=== PATIENT | female | born 1960 | race Caucasian/White ===

== ENCOUNTER → 2018-07-20 | Outpatient (REF) | payer BC ==
[2018-07-20 20:07] LABS: LIPASE 249 U/L (73-393)
[2018-07-20 20:07] LABS: AMYLASE 45 U/L (25-115)
== END ==
LOC: M LAB REF 17:41
DX: R10.819 Abdominal tenderness, unspecified site (principal); R19.7 Diarrhea, unspecified
CPT/HCPCS: 82150

== ENCOUNTER → 2018-07-21 | Outpatient (REF) | payer BC | LOC: M LAB REF 12:30 | DX: R19.7 Diarrhea, unspecified (principal) | CPT/HCPCS: 87507 ==

== ENCOUNTER → 2019-02-04 | Outpatient (CLI) | payer BC ==
[~2019-02-04] MED LIST: LEVO-91 PO; LOSA100T8 PO
[2019-02-04 19:16] LABS: C REACTIVE PROTEIN QUANTITATIV 0.78 MG/DL (0.00-0.30)
[2019-02-08 00:07] LABS: ANCA-ATYPICAL <1:20 titer (Neg:<1:20); ANTI-SACCHAROMYCES CEREV. IgA <20.0 Units (0.0-24.9); ANTI-SACCHAROMYCES CEREV. IgG <20.0 Units (0.0-24.9); CYTOPLASMIC NEUTROP AB ANCA-C <1:20 titer (Neg:<1:20); ENDOMYSIAL ABY IgA Negative (Negative); PERINUCLEAR AB ANCA-P <1:20 titer (Neg:<1:20); TISSUE TRANSGLUTAMINASE IgA <2 U/mL (0-3)
== END ==
LOC: M LABDRWAD 14:46
PROVIDERS: ATTEND Nurse Practitioner Family
DX: R19.7 Diarrhea, unspecified (principal)

== ENCOUNTER → 2019-02-08 | Outpatient (REF) | payer BC ==
[2019-02-12 00:08] LABS: FATS NEUTRAL Increased (.); FATS TOTAL Increased (.); PANCREATIC ELASTASE STOOL >500 (>200)
== END ==
LOC: M LAB REF 16:09
PROVIDERS: ATTEND Nurse Practitioner Family
DX: R19.7 Diarrhea, unspecified (principal)

== ENCOUNTER 2019-10-13 09:55 | Day surgery (SDC) | payer BC ==
[~2019-10-13] VITALS: Ht 154.9 cm; Wt 64.9 kg
[~2019-10-13 09:55] MED LIST changes: +ESTR3TA PO; +LR 1,000 ML IV ONE; +ceFAZolin SOD 2 GM in IV 1 EA IV ONE
[2019-10-13] MEDS ORDERED: METOCLOPRAMIDE INJ 10MG/2ML VIAL (J2765) As Ordered ONE (11:13)
[2019-10-13] MEDS ORDERED: KETOROLAC 60 MG/2 ML VIAL (J1885) As Ordered ONE (11:13)
[2019-10-13] MEDS ORDERED: dexameTHASONE 4 MG/ML 1ML VIAL (J1100) As Ordered ONE (11:13)
[2019-10-13] MEDS ORDERED: PROPOFOL 200 MG/20 ML VIAL As Ordered ONE (11:13)
[2019-10-13] MEDS ORDERED: ONDANSETRON 4MG/2ML VIAL (J2405) As Ordered ONE (11:13)
[2019-10-13] MEDS ORDERED: LIDOCAINE 2% INJ 100 MG/5 ML SDV (FOR ANES.) As Ordered ONE (11:13)
[2019-10-13] MEDS ORDERED: MIDAZOLAM INJ 2 MG/2 ML VIAL (J2250) As Ordered ONE (11:13)
[2019-10-13] MEDS ORDERED: fentaNYL 100 MCG/2 ML INJECTION (J3010) As Ordered ONE (11:13)
[2019-10-13] MEDS ORDERED: LIDOCAINE 1% SDV INJ 30 ML VIAL As Ordered ONE (12:01)
[2019-10-13] MEDS ORDERED: ceFAZolin 1GM INJ (J0690 PER 500MG) As Ordered ONE (12:01)
[2019-10-13] MEDS ORDERED: ACETAMINOPHEN 1000MG 100ML IV BTL (OFIRMEV) (J0131 PER 10MG) As Ordered ONE (13:16)
--- NOTE | 2019-10-13 13:48 | REP ---
SACRUM SERIES: 15 views. HISTORY: InterStim placement. Lead placement. Procedural imaging. 25 seconds of fluoroscopy time is reported. FINDINGS: A sequence of 15 last image hold fluoroscopically obtained spot radiographs of the sacrum document neurostimulator lead placement procedure. Unreviewed
[2019-10-13 14:05] VITALS: BP 124/60
[2019-10-13] MEDS ORDERED: LR 1,000 ML IV SCH (15:00)
[2019-10-13] MEDS ORDERED: ONDANSETRON 4MG/2ML VIAL (J2405) IV PRN (15:00)
[2019-10-13] MEDS ORDERED: fentaNYL 100 MCG/2 ML INJECTION (J3010) IV PRN (15:00)
[2019-10-13] MEDS ORDERED: PERCOCET 5MG/325MG TAB PO PRN (15:00)
[2019-10-13] MEDS ORDERED: IBUPROFEN 600 MG TAB PO PRN (15:15)
--- NOTE | 2019-10-13 20:33 | RO ---
DATE OF PROCEDURE: 10/13/2019 PREOPERATIVE DIAGNOSIS: Urinary incontinence with overactive bladder and urge. POSTOPERATIVE DIAGNOSIS: Urinary incontinence with overactive bladder and urge. PROCEDURE: InterStim stage I with placement of lead and temporary generator, programming and, of course, fluoroscopic evaluation. SURGEON: Dr. Marely Fontanez ASPHALT BLENDER: None. ANESTHESIA: Monitored anesthesia care (MAC), local. DESCRIPTION OF PROCEDURE: Renee was brought to the operating room where she was positioned prone in the usual fashion, the prep and the drapes, etcetera and after identification and measuring off the landmarks, she was numbed with lidocaine. And the first couple of attempts to place the sacral needle showed no palpable foramen at all. X-ray showed that we were a little too lateral, so we moved medial and placed a needle in the third sacral foramen. On the first test, we had good response, but we were over 1, so we went ahead and moved just a little higher and more medial. And with this placement, we had very good both francisco and toe response. We then placed the curved stylet with the lead and our test with this showed response at all four leads under 1 with both francisco and toe response under 1 for all four. So, we went ahead with that for our placement. We used continuous fluoroscopy while we removed the introducer and such, and then burrowed the lead out sideways to a pocket in the left superior buttock, inferior back and connected it to the extension to the temporary generator. Created a small pocket, irrigated with antibiotic irrigation, etc., numbed again. And after the connection, the boot and all that, tunneled out further to the exit to the temporary generator and closed in two layers the wound for the eventual future pocket should this be a successful test, and, of course, closed that with #2-0 Vicryl, closed the skin with #3-0 Vicryl, and then dry sterile dressings were applied, and the generator connected, etc. She will be programmed outside the operating room (OR). Estimated blood loss for the procedure: Maybe 3 mL. As noted, we did use antibiotic irrigation, we did use lidocaine, as well as the MAC, and there were no complications. Fluid replacement was crystalloid. Condition and Disposition: Renee tolerated the procedure well and was recovering in the recovery room in good condition.
== END 2019-10-13 14:27 | disposition home or self-care (01) ==
LOC: M SDC 09:55
PROVIDERS: ATTEND Obstetrics & Gynecology
DX: R32 Unspecified urinary incontinence (principal); N32.81 Overactive bladder; I10 Essential (primary) hypertension; E78.5 Hyperlipidemia, unspecified; E03.9 Hypothyroidism, unspecified; Z79.899 Other long term (current) drug therapy
CPT/HCPCS: 64581; 76000; C1767; C1894; C1897; J0131; J0690; J1100; J1885; J2250; J2405; J2765; J3010

== ENCOUNTER 2019-10-20 09:07 | Day surgery (SDC) | payer BC ==
[~2019-10-20] VITALS: Ht 154.9 cm; Wt 66.1 kg
[2019-10-20] MEDS ORDERED: SCOPOLAMINE 1MG TRANSDERMAL PATCH As Ordered ONE (09:36)
[2019-10-20] MEDS ORDERED: LIDOCAINE 1% MDV 20ML VIAL As Ordered ONE (09:52)
[2019-10-20] MEDS ORDERED: ceFAZolin 1GM INJ (J0690 PER 500MG) As Ordered ONE (09:52)
[2019-10-20] MEDS ORDERED: SCOPOLAMINE 1MG TRANSDERMAL PATCH TOP ONE (10:00)
[2019-10-20] MEDS ORDERED: PROPOFOL 200 MG/20 ML VIAL As Ordered ONE (10:01)
[2019-10-20] MEDS ORDERED: dexameTHASONE 4 MG/ML 1ML VIAL (J1100) As Ordered ONE (10:01)
[2019-10-20] MEDS ORDERED: ONDANSETRON 4MG/2ML VIAL (J2405) As Ordered ONE (10:01)
[2019-10-20] MEDS ORDERED: METOCLOPRAMIDE INJ 10MG/2ML VIAL (J2765) As Ordered ONE (10:01)
[2019-10-20] MEDS ORDERED: fentaNYL 100 MCG/2 ML INJECTION (J3010) As Ordered ONE (10:01)
[2019-10-20] MEDS ORDERED: LIDOCAINE 2% INJ 100 MG/5 ML SDV (FOR ANES.) As Ordered ONE (10:01)
[2019-10-20] MEDS ORDERED: MIDAZOLAM INJ 2 MG/2 ML VIAL (J2250) As Ordered ONE (10:01)
[2019-10-20] MEDS ORDERED: ACETAMINOPHEN 1000MG 100ML IV BTL (OFIRMEV) (J0131 PER 10MG) As Ordered ONE (10:08)
[2019-10-20] MEDS ORDERED: KETOROLAC 60 MG/2 ML VIAL (J1885) As Ordered ONE (10:10)
[2019-10-20 11:40] VITALS: BP 130/69
--- NOTE | 2019-10-24 11:36 | RO ---
DATE OF PROCEDURE: 10/20/2019 PREPROCEDURE DIAGNOSIS: Incontinence with successful stage I InterStim. POSTPROCEDURE DIAGNOSIS: Incontinence with successful stage I InterStim. PROCEDURE: Stage II InterStim with placement of permanent neurostimulator and programming. SURGEON: Marely Fontanez MD BIBLE READER: None. ANESTHESIA: MAC and local. DESCRIPTION OF PROCEDURE: Renee was brought to the operating room where sufficient sedation was given, and she was prepped, draped and positioned in the usual prone position. We then used Lidocaine at the incision site over the extension connector. After waiting for the Lidocaine to set up, we made an incision over the previous incision site, dissected down to the connection, the connection, removed the bench worker helper and then attached the neurostimulator, following which we used the Bovie and created a pocket and irrigated with antibiotic irrigant, and then placed the InterStim neurostimulator. I did a two layer closure over the pocket, and then tested for impedance. When the neurostimulator passed that testing, the final skin closure was completed and Steri-Strips placed. We used 2-0 for the deep closure and 3-0 for the skin with good approximation and hemostasis at both levels. Steri-Strips were used for the dressing, and the procedure was ended. ESTIMATED BLOOD LOSS: About 2 mL. FLUID REPLACEMENT: Crystalloid. COMPLICATIONS: None. CONDITION AND DISPOSITION: Renee tolerated the procedure well and was recovering in the recovery room in good condition.
== END 2019-10-20 12:01 | disposition home or self-care (01) ==
LOC: M SDC 09:07
PROVIDERS: ATTEND Obstetrics & Gynecology
DX: R32 Unspecified urinary incontinence (principal); I10 Essential (primary) hypertension; E03.9 Hypothyroidism, unspecified; E78.00 Pure hypercholesterolemia, unspecified; G43.909 Migraine, unspecified, not intractable, without status migrainosus; I49.9 Cardiac arrhythmia, unspecified; N95.2 Postmenopausal atrophic vaginitis; Z79.899 Other long term (current) drug therapy; Z87.442 Personal history of urinary calculi; Z90.710 Acquired absence of both cervix and uterus; Z79.890 Hormone replacement therapy
CPT/HCPCS: 64590; C1767; J0131; J0690; J1100; J1885; J2250; J2405; J2765; J3010

== ENCOUNTER → 2020-04-19 | Outpatient (CLI) | payer BC ==
[~2020-04-19] MED LIST changes: +EPIP0.3I2 IM; -LR 1,000 ML IV ONE; +PRED10TA2 PO; -ceFAZolin SOD 2 GM in IV 1 EA IV ONE
--- NOTE | 2020-04-19 15:58 | REP ---
Clinical: Right wrist pain. Technique: AP, lateral, bilateral oblique views of the right wrist. Findings: Findings suggest old ulnar styloid fracture. No acute fracture or dislocation identified. Mild arthritic changes primarily noted at the first carpometacarpal joint with subchondral sclerosis, marginal spurring, mild chronic subluxation and joint space narrowing. Increase sclerosis and joint space narrowing also noted at the radiocarpal joint line. Impression: Mild arthritic changes primarily involving the first carpometacarpal joint and radiocarpal joint space. Electronically Signed by Rigoberto Arriola MD 04/19/2020 03:50 P
--- NOTE | 2020-04-19 16:00 | REP ---
Clinical: Right hand pain. Technique: AP, lateral, bilateral oblique views of the right hand. Findings: Subchondral sclerosis, joint space narrowing, marginal spurring and mild subluxation noted at the first carpometacarpal joint. Mild sclerosis and subtle joint space narrowing with minimal spurring also identified at the first metacarpophalangeal joint. Remainder of the examination is essentially age-appropriate. Impression: Arthritic changes involving the first digit. Electronically Signed by Rigoberto Arriola MD 04/19/2020 03:52 P
== END ==
LOC: M ADAMS 15:22
PROVIDERS: ATTEND Family Medicine
DX: M79.641 Pain in right hand (principal); M25.531 Pain in right wrist

== ENCOUNTER 2020-07-11 14:06 | Emergency (ER) | payer BC ==
[~2020-07-11 14:06] MED LIST changes: -EPIP0.3I2 IM; -PRED10TA2 PO
[2020-07-11] MEDS ORDERED: FAMOTIDINE/NS 20 MG/50 ML BAG (S0028) As Ordered ONE (14:19)
[2020-07-11] MEDS ORDERED: diphenhydrAMINE 50MG/ML VIAL (J1200) As Ordered ONE (14:19)
[2020-07-11] MEDS ORDERED: diphenhydrAMINE 50MG/ML VIAL (J1200) IV ONE (14:30)
[2020-07-11] MEDS ORDERED: NS 1,000 ML IV ONE (14:30)
[2020-07-11] MEDS ORDERED: FAMOTIDINE INJ 20MG/2ML VIAL (S0028 PER 1) IVP ONE (14:30)
[2020-07-11 15:38] LABS: BASO % 0.2 % (0.0-1.0); EOS % 0.2 % (0.0-3.0); HEMATOCRIT 40.8 % (36.0-47.0); HEMOGLOBIN 13.5 g/dl (12.0-15.5); LYMPH # 2.3 10^3/uL (1.5-5.0); LYMPH % 17.6 % (24.0-44.0); MEAN CORPUSCULAR HEMOGLOBIN 31.5 pg (27.0-33.0); MEAN CORPUSCULAR HGB CONC 33.1 g/dl (32.0-36.5); MEAN CORPUSCULAR VOLUME 95.3 fl (80.0-96.0); MONO # 0.3 10^3/uL (0.0-0.8); MONO % 2.4 % (0.0-5.0); NEUTROPHILS # 10.1 10^3/uL (1.5-8.5); NEUTROPHILS % 79.1 % (36.0-66.0); PLATELET COUNT, AUTOMATED 167 10^3/uL (150-450); RED BLOOD COUNT 4.28 10^6/uL (4.00-5.40); WHITE BLOOD COUNT 12.8 10^3/uL (4.0-10.0)
[2020-07-11] MEDS ORDERED: EPIP0.3I2 IM (16:30)
[2020-07-11] MEDS ORDERED: PRED10TA2 PO (16:30)
[2020-07-11 16:45] VITALS: BP 108/64
[2020-07-11 17:07] LABS: BLOOD UREA NITROGEN 16 MG/DL (7-18); CALCIUM LEVEL 8.6 MG/DL (8.8-10.2); CARBON DIOXIDE LEVEL 27 MEQ/L (21-32); CHLORIDE LEVEL 109 MEQ/L (98-107); CREATININE FOR GFR 0.96 MG/DL (0.55-1.30); FREE T4 1.16 NG/DL (0.76-1.46); GLOMERULAR FILTRATION RATE > 60.0 (>45); GLUCOSE, FASTING 173 MG/DL (70-100); POTASSIUM SERUM 3.1 MEQ/L (3.5-5.1); SODIUM LEVEL 142 MEQ/L (136-145)
== END 2020-07-11 17:11 | disposition home or self-care (01) ==
LOC: M ED 14:06 → EDBD 14:06 → M ED 17:11
DX: T63.441A Toxic effect of venom of bees, accidental (unintentional), initial encounter (principal); Y92.9 Unspecified place or not applicable; Y93.9 Activity, unspecified; L29.9 Pruritus, unspecified; L50.0 Allergic urticaria; R21 Rash and other nonspecific skin eruption; Z79.890 Hormone replacement therapy; Z79.899 Other long term (current) drug therapy; Z91.030 Bee allergy status
CPT/HCPCS: 80048; 84439; 84443; 85025; 93041; 94760; 96361; 96374; 96375; 99284; J1200

== ENCOUNTER → 2021-01-25 | Outpatient (REF) | payer BC ==
[~2021-01-25] MED LIST changes: +EPIP0.3I2 IM; +PRED10TA2 PO
== END ==
LOC: M LAB 21:14
PROVIDERS: ATTEND Family Medicine
DX: R19.7 Diarrhea, unspecified (principal)

== ENCOUNTER → 2021-09-05 | Outpatient (CLI) | payer BC ==
--- NOTE | 2021-09-06 10:19 | REP ---
INDICATION: ENC SCREEN FOR MALIGNANT NEOPLASM OF BREAST. COMPARISON: Multiple TECHNIQUE: Digital screening mammography was cardio bilaterally in the CC and MLO projections using both 2D and 3D modalities and compared to the prior exams. By history, the patient has no complaints of a palpable breast abnormality or other significant breast complaints. FINDINGS: The breasts are unchanged in size and shape. There are no lu soft tissue densities or spiculated masses. There is no internal architectural distortion. There is no skin thickening or nipple retraction. In the upper outer quadrant of the right breast there is a new grouping of calcifications which seem to vary in size, shape, and radiographic density. Other calcifications are seen bilaterally, however, they are stable and have a benign appearance. The Volpara volumetric breast density pattern is b. IMPRESSION: BIRADS/ACR category 0 mammogram. New calcifications seen in the right breast as described above and for which diagnostic digital magnified spot compression views are recommended in the CC and true lateral projections. This patient's Tyrer-Cuzick lifetime breast cancer risk assessment score is 16.2%. This mammogram was interpreted with the aid of an FDA-approved computer-aided detection system. The patient states she had a clinical breast exam in September 2021. The patient letter being requested is M0. RECOMMENDATION: Above <Electronically signed by Dennis Hsieh > 09/06/21 [id number]
== END ==
LOC: M WHC 11:17
PROVIDERS: ATTEND Obstetrics & Gynecology
DX: Z12.31 Encounter for screening mammogram for malignant neoplasm of breast (principal); R92.1 Mammographic calcification found on diagnostic imaging of breast

== ENCOUNTER → 2021-09-16 | Outpatient (CLI) | payer BC ==
--- NOTE | 2021-09-16 12:16 | REP ---
INDICATION: RIGHT BREAST ADD VIEWS. Calcifications COMPARISON: Multiple screening mammograms the most recent of 09/05/2021. TECHNIQUE: 2D focal compression magnification of the right breast in the CC and MLO orientations. 2D and 3D true lateral view of the left breast. FINDINGS: The Volpara volumetric breast density pattern is a, the breasts are almost entirely fatty. The group of indeterminate calcifications in the middle 3rd of the right breast above and lateral to the nipple, in the upper outer quadrant, at the 10-11 o'clock position, are probably benign on the additional view images. However, a six-month follow-up evaluation is recommended. IMPRESSION: BIRADS/ACR : Category 3: Probably benign. The patient letter being requested is M3. RECOMMENDATION: Repeat six-month follow-up mammographic evaluation of the right breast to include focal compression magnification views. <Electronically signed by Benjamin Abreu > 09/16/21 [id number]
== END ==
LOC: M WHC 11:37
PROVIDERS: ATTEND Obstetrics & Gynecology
DX: R92.1 Mammographic calcification found on diagnostic imaging of breast (principal)
CPT/HCPCS: 77065; G0279

== ENCOUNTER → 2022-03-17 | Outpatient (CLI) | payer BC | LOC: M WHC 09:40 | PROVIDERS: ATTEND Obstetrics & Gynecology | DX: R92.1 Mammographic calcification found on diagnostic imaging of breast (principal); R92.0 Mammographic microcalcification found on diagnostic imaging of breast | CPT/HCPCS: 77065; G0279 ==

== ENCOUNTER → 2022-11-19 | Outpatient (REF) | payer BC ==
[2022-11-19 18:49] LABS: APPEARANCE, URINE MANUAL CLOUDY (CLEAR); COLOR, URINE MANUAL YELLOW (YELLOW)
[2022-11-19 18:50] LABS: BILIRUBIN, URINE MANUAL NEGATIVE (NEGATIVE); BLOOD URINE MANUAL TRACE (NEGATIVE); GLUCOSE, URINE (UA) MANUAL NEGATIVE (NEGATIVE); KETONE, URINE MANUAL NEGATIVE (NEGATIVE); LEUKOCYTE ESTERASE, URINE MAN NEGATIVE (NEGATIVE); NITRITE, URINE MANUAL NEGATIVE (NEGATIVE); PROTEIN, URINE MANUAL NEGATIVE (NEGATIVE); SPECIFIC GRAVITY,URINE MANUAL 1.025 (1.002-1.035); UROBILINOGEN, URINE MANUAL NORMAL (NORMAL)
[2022-11-19 19:36] LABS: SQUAMOUS EPITHELIAL CELL URINE SMALL AMOUNT /hpf (SMALL AMT); WBC, URINE NONE SEEN /hpf (0-3)
[2022-11-19 19:37] LABS: AMORPHOUS SEDIMENT, URINE LARGE AMOUNT (NEGATIVE); BACTERIA, URINE NONE SEEN; CALCIUM OXALATE CRYSTALS,URINE SMALL AMOUNT /hpf; HYALINE CAST, URINE NONE SEEN /lpf (0-1)
== END ==
LOC: M SMT 17:01
PROVIDERS: ATTEND Urology
DX: R39.15 Urgency of urination (principal)

== ENCOUNTER → 2022-12-18 | Outpatient (REF) | payer BC ==
[2022-12-19 14:00] LABS: BLOOD UREA NITROGEN 15 MG/DL (9-23); CALCIUM LEVEL 9.2 MG/DL (8.3-10.6); CARBON DIOXIDE LEVEL 29 MMOL/L (20-31); CHLORIDE LEVEL 105 MMOL/L (98-107); GLOMERULAR FILTRATION RATE > 60.0 (>45); GLUCOSE, FASTING 86 MG/DL (74-106); POTASSIUM SERUM 4.2 MMOL/L (3.5-5.1); SODIUM LEVEL 141 MMOL/L (136-145)
== END ==
LOC: M SFHCADAM 12:34
PROVIDERS: ATTEND Nurse Practitioner Family
DX: L65.9 Nonscarring hair loss, unspecified (principal)

== ENCOUNTER → 2022-12-26 | Outpatient (REF) | payer BC ==
[2022-12-26 17:31] LABS: APPEARANCE, URINE HAZY (CLEAR); BACTERIA, URINE AUTO 1+ (NEGATIVE); BILIRUBIN, URINE AUTO NEGATIVE (NEGATIVE); BLOOD, URINE BLOOD NEGATIVE (NEGATIVE); COLOR, URINE AMBER (YELLOW); GLUCOSE, URINE (UA) AUTO NEGATIVE (NEGATIVE); KETONE, URINE AUTO TRACE mg/dL (NEGATIVE); LEUKOCYTE ESTERASE, URINE AUTO 1+ (NEGATIVE); MUCUS, URINE MODERATE (NEGATIVE); NITRITE, URINE AUTO NEGATIVE (NEGATIVE); PROTEIN, URINE AUTO NEGATIVE (NEGATIVE); RBC, URINE AUTO 5 /HPF (0-3); SPECIFIC GRAVITY URINE AUTO 1.025 (1.002-1.035); SQUAMOUS EPITHELIAL CELL UR AU 5 /HPF (0-6); UROBILINOGEN, URINE AUTO 0.2 mg/dL (0.0-2.0); WBC, URINE AUTO 23 /HPF (0-3)
== END ==
LOC: M SFHCADAM 14:51
PROVIDERS: ATTEND Urology
DX: R31.29 Other microscopic hematuria (principal)

== ENCOUNTER → 2023-02-13 | Outpatient (REF) | payer BC ==
[2023-02-13 18:29] LABS: AMORPHOUS SEDIMENT MODERATE (NEGATIVE); APPEARANCE, URINE TURBID (CLEAR); BACTERIA, URINE AUTO NEGATIVE (NEGATIVE); BILIRUBIN, URINE AUTO NEGATIVE (NEGATIVE); BLOOD, URINE BLOOD NEGATIVE (NEGATIVE); COLOR, URINE YELLOW (YELLOW); GLUCOSE, URINE (UA) AUTO NEGATIVE (NEGATIVE); KETONE, URINE AUTO NEGATIVE (NEGATIVE); LEUKOCYTE ESTERASE, URINE AUTO NEGATIVE (NEGATIVE); MUCUS, URINE SMALL (NEGATIVE); NITRITE, URINE AUTO NEGATIVE (NEGATIVE); PROTEIN, URINE AUTO NEGATIVE (NEGATIVE); RBC, URINE AUTO 0 /HPF (0-3); SPECIFIC GRAVITY URINE AUTO 1.021 (1.002-1.035); SQUAMOUS EPITHELIAL CELL UR AU 0 /HPF (0-6); UROBILINOGEN, URINE AUTO 0.2 mg/dL (0.0-2.0); WBC, URINE AUTO 0 /HPF (0-3)
== END ==
LOC: M SMT 16:52
PROVIDERS: ATTEND Urology
DX: R31.9 Hematuria, unspecified (principal)

== ENCOUNTER → 2023-04-21 | Outpatient (REF) | payer BC ==
[2023-04-21 13:31] LABS: ALKALINE PHOSPHATASE 103 U/L (46-116); ALT/SGPT 17 U/L (7.0-40); AST/SGOT 14 U/L (<34); BILIRUBIN,TOTAL 0.4 MG/DL (0.3-1.2); BLOOD UREA NITROGEN 14 MG/DL (9-23); CALCIUM LEVEL 9.4 MG/DL (8.3-10.6); CARBON DIOXIDE LEVEL 30 MMOL/L (20-31); CHLORIDE LEVEL 102 MMOL/L (98-107); CHOLESTEROL LEVEL 219 MG/DL (<200); CHOLESTEROL RISK RATIO 3.65 (<5); CREATININE FOR GFR 0.78 MG/DL (0.55-1.30); GLOMERULAR FILTRATION RATE > 60.0 (>45); GLUCOSE, FASTING 88 MG/DL (74-106); HDL CHOLESTEROL 59.9 MG/DL (>40); LDL CHOLESTEROL 136.7 MG/DL (<100); NON-HDL-C 159.1 MG/DL; POTASSIUM SERUM 3.6 MMOL/L (3.5-5.1); SODIUM LEVEL 139 MMOL/L (136-145); TOTAL PROTEIN 7.1 G/DL (5.7-8.2); TRIGLYCERIDES LEVEL 112 MG/DL (<150)
[2023-04-21 13:33] LABS: THYROID STIMULATING HORMONE 0.904 uIU/ML (0.55-4.78)
== END ==
LOC: M LAB REF 12:22
PROVIDERS: ATTEND Family Medicine
DX: Z00.00 Encounter for general adult medical examination without abnormal findings (principal); E78.5 Hyperlipidemia, unspecified; I10 Essential (primary) hypertension

== ENCOUNTER → 2023-09-02 | Outpatient (REF) | payer BC | LOC: M SMT 17:23 | PROVIDERS: ATTEND Urology | DX: R31.29 Other microscopic hematuria (principal) ==

== ENCOUNTER → 2023-09-10 | Outpatient (REF) | payer BC ==
[2023-09-10 18:50] LABS: APPEARANCE, URINE CLEAR (CLEAR); BACTERIA, URINE AUTO NEGATIVE (NEGATIVE); BILIRUBIN, URINE AUTO NEGATIVE (NEGATIVE); BLOOD, URINE BLOOD NEGATIVE (NEGATIVE); COLOR, URINE STRAW (YELLOW); GLUCOSE, URINE (UA) AUTO NEGATIVE (NEGATIVE); KETONE, URINE AUTO NEGATIVE (NEGATIVE); LEUKOCYTE ESTERASE, URINE AUTO NEGATIVE (NEGATIVE); MUCUS, URINE SMALL (NEGATIVE); NITRITE, URINE AUTO NEGATIVE (NEGATIVE); PROTEIN, URINE AUTO NEGATIVE (NEGATIVE); RBC, URINE AUTO 0 /HPF (0-3); SPECIFIC GRAVITY URINE AUTO 1.011 (1.002-1.035); SQUAMOUS EPITHELIAL CELL UR AU 0 /HPF (0-6); UROBILINOGEN, URINE AUTO 0.2 mg/dL (0.0-2.0); WBC, URINE AUTO 0 /HPF (0-3)
== END ==
LOC: M SMT 17:10
PROVIDERS: ATTEND Urology
DX: R30.0 Dysuria (principal)

== ENCOUNTER → 2023-10-12 | Outpatient (REF) | payer BC ==
[2023-10-12 17:43] LABS: ALBUMIN 3.7 G/DL (3.2-5.2); ALKALINE PHOSPHATASE 86 U/L (46-116); ALT/SGPT 12 U/L (7.0-40); AST/SGOT 14 U/L (<34); BILIRUBIN,TOTAL 0.3 MG/DL (0.3-1.2); BLOOD UREA NITROGEN 12 MG/DL (9-23); CALCIUM LEVEL 9.1 MG/DL (8.3-10.6); CARBON DIOXIDE LEVEL 27 MMOL/L (20-31); CHLORIDE LEVEL 103 MMOL/L (98-107); CHOLESTEROL LEVEL 250 MG/DL (<200); CHOLESTEROL RISK RATIO 4.05 (<5); CREATININE FOR GFR 0.73 MG/DL (0.55-1.30); FREE T4 1.17 NG/DL (0.89-1.76); GLOMERULAR FILTRATION RATE > 60.0 (>45); GLUCOSE, FASTING 92 MG/DL (74-106); HDL CHOLESTEROL 61.7 MG/DL (>40); LDL CHOLESTEROL 168.7 MG/DL (<100); NON-HDL-C 188.3 MG/DL; SODIUM LEVEL 138 MMOL/L (136-145); THYROID STIMULATING HORMONE 0.562 uIU/ML (0.55-4.78); TRIGLYCERIDES LEVEL 98 MG/DL (<150)
== END ==
LOC: M LAB REF 16:20
PROVIDERS: ATTEND Family Medicine
DX: Z00.00 Encounter for general adult medical examination without abnormal findings (principal); I10 Essential (primary) hypertension; E78.5 Hyperlipidemia, unspecified; E03.9 Hypothyroidism, unspecified

== ENCOUNTER → 2024-01-15 | Outpatient (REF) | payer BC, MEDICARE ==
[2024-01-15 18:15] LABS: APPEARANCE, URINE HAZY (CLEAR); BACTERIA, URINE AUTO NEGATIVE (NEGATIVE); BILIRUBIN, URINE AUTO NEGATIVE (NEGATIVE); BLOOD, URINE BLOOD 1+ (NEGATIVE); COLOR, URINE YELLOW (YELLOW); GLUCOSE, URINE (UA) AUTO NEGATIVE (NEGATIVE); KETONE, URINE AUTO NEGATIVE (NEGATIVE); LEUKOCYTE ESTERASE, URINE AUTO NEGATIVE (NEGATIVE); NITRITE, URINE AUTO NEGATIVE (NEGATIVE); PROTEIN, URINE AUTO NEGATIVE (NEGATIVE); RBC, URINE AUTO 1 /HPF (0-3); SPECIFIC GRAVITY URINE AUTO 1.014 (1.002-1.035); SQUAMOUS EPITHELIAL CELL UR AU 4 /HPF (0-6); UROBILINOGEN, URINE AUTO 0.2 mg/dL (0.0-2.0); WBC, URINE AUTO 1 /HPF (0-3)
== END ==
LOC: M SMT 17:03
PROVIDERS: ATTEND Physician Assistant
DX: R30.0 Dysuria (principal)

== ENCOUNTER → 2024-03-25 | Outpatient (CLI) | payer MEDICARE | LOC: M WHC 12:30 | PROVIDERS: ATTEND Obstetrics & Gynecology | DX: Z12.31 Encounter for screening mammogram for malignant neoplasm of breast (principal) ==

== ENCOUNTER → 2024-03-31 | Outpatient (REF) | payer MEDICARE | LOC: M SFHCADAM 16:47 | PROVIDERS: ATTEND Nurse Practitioner Family | DX: C44.519 Basal cell carcinoma of skin of other part of trunk (principal) ==

== ENCOUNTER → 2024-04-15 | Outpatient (REF) | payer MEDICARE | LOC: M LAB REF 13:05 | PROVIDERS: ATTEND Nurse Practitioner Family | DX: R19.7 Diarrhea, unspecified (principal); R10.13 Epigastric pain; K92.1 Melena ==

== ENCOUNTER → 2024-04-21 | Outpatient (CLI) | payer MEDICARE | LOC: M RAD 12:09 | PROVIDERS: ATTEND Nurse Practitioner Family | DX: R19.7 Diarrhea, unspecified (principal); R10.13 Epigastric pain; K92.1 Melena ==

== ENCOUNTER → 2024-04-29 | Outpatient (REF) | payer MEDICARE ==
[2024-04-29 17:05] LABS: FREE T4 1.03 NG/DL (0.89-1.76); THYROID STIMULATING HORMONE 1.335 uIU/ML (0.55-4.78)
[2024-04-29 17:06] LABS: ALBUMIN 3.8 G/DL (3.2-5.2); ALKALINE PHOSPHATASE 90 U/L (46-116); ALT/SGPT 14 U/L (7.0-40); AST/SGOT 10 U/L (<34); BILIRUBIN,TOTAL 0.4 MG/DL (0.3-1.2); BLOOD UREA NITROGEN 14 MG/DL (9-23); CALCIUM LEVEL 9.2 MG/DL (8.3-10.6); CARBON DIOXIDE LEVEL 28 MMOL/L (20-31); CHLORIDE LEVEL 105 MMOL/L (98-107); CHOLESTEROL LEVEL 247 MG/DL (<200); CHOLESTEROL RISK RATIO 4.71 (<5); CREATININE FOR GFR 0.82 MG/DL (0.55-1.30); GLOMERULAR FILTRATION RATE > 60.0 (>45); GLUCOSE, FASTING 93 MG/DL (74-106); HDL CHOLESTEROL 52.4 MG/DL (>40); LDL CHOLESTEROL 169.2 MG/DL (<100); NON-HDL-C 194.6 MG/DL; POTASSIUM SERUM 4.4 MMOL/L (3.5-5.1); SODIUM LEVEL 139 MMOL/L (136-145); TRIGLYCERIDES LEVEL 127 MG/DL (<150)
== END ==
LOC: M LAB REF 16:20
PROVIDERS: ATTEND Family Medicine
DX: E78.5 Hyperlipidemia, unspecified (principal); E03.9 Hypothyroidism, unspecified; I10 Essential (primary) hypertension

== ENCOUNTER → 2024-06-17 | Outpatient (CLI) | payer MEDICARE ==
[2024-06-17 11:24] LABS: ALBUMIN 3.7 G/DL (3.2-5.2); ALKALINE PHOSPHATASE 103 U/L (46-116); ALT/SGPT 12 U/L (7.0-40); AST/SGOT 12 U/L (<34); BILIRUBIN,TOTAL 0.3 MG/DL (0.3-1.2); BLOOD UREA NITROGEN 22 MG/DL (9-23); CALCIUM LEVEL 9.8 MG/DL (8.3-10.6); CARBON DIOXIDE LEVEL 31 MMOL/L (20-31); CHLORIDE LEVEL 105 MMOL/L (98-107); CREATININE FOR GFR 0.93 MG/DL (0.55-1.30); GLOMERULAR FILTRATION RATE > 60.0 (>45); GLUCOSE, FASTING 98 MG/DL (74-106); POTASSIUM SERUM 4.2 MMOL/L (3.5-5.1); SODIUM LEVEL 140 MMOL/L (136-145); TOTAL PROTEIN 7.1 G/DL (5.7-8.2)
== END ==
LOC: M LAB 10:36
PROVIDERS: ATTEND Nurse Practitioner Family
DX: R10.31 Right lower quadrant pain (principal)

== ENCOUNTER → 2024-07-06 | Outpatient (REF) | payer MEDICARE ==
[2024-07-06 15:43] LABS: APPEARANCE, URINE HAZY (CLEAR); BACTERIA, URINE AUTO NEGATIVE (NEGATIVE); BILIRUBIN, URINE AUTO NEGATIVE (NEGATIVE); BLOOD, URINE BLOOD NEGATIVE (NEGATIVE); COLOR, URINE YELLOW (YELLOW); GLUCOSE, URINE (UA) AUTO NEGATIVE (NEGATIVE); KETONE, URINE AUTO TRACE mg/dL (NEGATIVE); LEUKOCYTE ESTERASE, URINE AUTO 1+ (NEGATIVE); MUCUS, URINE SMALL (NEGATIVE); NITRITE, URINE AUTO NEGATIVE (NEGATIVE); PROTEIN, URINE AUTO NEGATIVE (NEGATIVE); RBC, URINE AUTO 1 /HPF (0-3); SPECIFIC GRAVITY URINE AUTO 1.024 (1.002-1.035); SQUAMOUS EPITHELIAL CELL UR AU 3 /HPF (0-6); UROBILINOGEN, URINE AUTO 0.2 mg/dL (0.0-2.0); WBC, URINE AUTO 8 /HPF (0-3)
== END ==
LOC: M SMT 15:07
PROVIDERS: ATTEND Urology
DX: R31.9 Hematuria, unspecified (principal)

== ENCOUNTER → 2024-07-25 | Outpatient (CLI) | payer MEDICARE | LOC: M RAD 11:27 | DX: R10.13 Epigastric pain (principal); K86.2 Cyst of pancreas; R19.7 Diarrhea, unspecified | CPT/HCPCS: 78227; A9537 ==

== ENCOUNTER → 2025-09-04 | Outpatient (CLI) | payer MEDICAID, MEDICARE | LOC: M WUC 10:03 | PROVIDERS: ATTEND Family Medicine | DX: R05.3 Chronic cough (principal) ==

== ENCOUNTER → 2025-10-17 | Outpatient (CLI) | payer MEDICARE ==
[~2025-10-17] MED LIST changes: +BARIUM SULFATE 700 MG TABLET As Ordered ONE; +E-Z-PAQUE 96% w/w SUSP 176 GM BTL As Ordered ONE; +VARIBAR NECTAR 40% w/v 240ML SUSP BTL As Ordered ONE; +VARIBAR PUDDING 40% w/v 230ML TUBE As Ordered ONE
== END ==
LOC: M RAD 11:43
PROVIDERS: ATTEND Family Medicine
DX: R05.9 Cough, unspecified (principal)